=== PATIENT | male | born 1975 | race Hispanic/Latino ===

== ENCOUNTER 2019-06-16 05:29 | Emergency (ER) | payer OTHER, SELFPAY ==
[2019-06-16 06:13] LABS: Absolute Lymphocytes (CBC) 1.5 K/uL (0.7-4.9); Basophils % 0.6 % (0-1.3); Hematocrit 42.9 % (39.6-49.0); Lymphocytes % 16.3 % (15.3-44.8); RBC Red Blood Cell Count 4.98 M/uL (4.33-5.43)
[2019-06-16 06:19] LABS: Albumin 3.5 g/dL (3.4-5.0); Bilirubin Direct 0.2 mg/dL (0-0.2); Bilirubin Total 0.3 mg/dL (0.2-1.0); Potassium 3.9 mmol/L (3.5-5.1); Protein, Total 7.6 g/dL (6.4-8.2)
--- NOTE | 2019-06-16 06:51 | ER ---
Nurse's Notes [facility] Name: Parker Bermeo Age: 44 yrs Sex: Male : 1975 Arrival Date: 06/16/2019 Time: 05:30 Bed 5 Private MD: Diagnosis: Vomiting;Unspecified abdominal pain Presentation: 06/16 05:38 Presenting complaint: Patient states: Sudden onset epigastric pain that began at 0400, lp1 vomited x3, no relief with Tums. Transition of care: patient was not received from another setting of care. Onset of symptoms was June 16, 2019 at 04:00. Risk Assessment: Do you want to hurt yourself or someone else? Patient reports no desire to harm self or others. Initial Sepsis Screen: Does the patient meet any 2 criteria? No. Patient's initial sepsis screen is negative. Does the patient have a suspected source of infection? No. Patient's initial sepsis screen is negative. Care prior to arrival: None. 05:38 Method Of Arrival: Ambulatory lp1 05:38 Acuity: ANNETTE 3 lp1 Historical: - Allergies: 05:40 No Known Allergies; lp1 - Home Meds: 05:40 None [Active]; lp1 - PMHx: 05:40 None; lp1 - PSHx: 05:40 Tonsillectomy; lp1 - Immunization history:: Adult Immunizations up to date. - Social history:: Smoking status: Patient uses tobacco products, smokes one-half pack cigarettes per day. - Ebola Screening: : No symptoms or risks identified at this time. Screenin:40 Abuse screen: Denies threats or abuse. Denies injuries from another. Nutritional lp1 screening: No deficits noted. Tuberculosis screening: No symptoms or risk factors identified. Fall Risk None identified. Assessment: 05:42 Reassessment: verbal order from Dr. Martin for Morphine 4 mg IV x1, Zofran 4 mg IV x1. lp1 06:01 General: Appears in no apparent distress. uncomfortable, Behavior is calm, cooperative, jb4 appropriate for age. Pain: Complains of pain in abdomen Pain does not radiate. Pain currently is 3 out of 10 on a pain scale. Neuro: Level of Consciousness is awake, alert, obeys commands, Oriented to person, place, time, situation. Cardiovascular: Patient's skin is warm and dry. Respiratory: Airway is patent Respiratory effort is even, unlabored, Respiratory pattern is regular, symmetrical. GI: Abdomen is non-distended, obese, Bowel sounds present X 4 quads. Abd is soft and non tender X 4 quads. : No signs and/or symptoms were reported regarding the genitourinary system. EENT: No signs and/or symptoms were reported regarding the EENT system. Derm: Skin is intact, Skin is pink, warm \T\ dry. Musculoskeletal: Circulation, motion, and sensation intact. Range of motion: intact in all extremities. 06:55 Reassessment: Patient appears in no apparent distress at this time. Patient and/or jb4 family updated on plan of care and expected duration. Pain level reassessed. Patient is alert, oriented x 3, equal unlabored respirations, skin warm/dry/pink. Patient states feeling better. Vital Signs: 05:39 BP 171 / 92; Pulse 62; Resp 18; Temp 97.6(O); Pulse Ox 100% on R/A; Weight 156.49 kg lp1 (R); Height 5 ft. 10 in. (177.80 cm); Pain 9/10; 06:55 BP 147 / 78; Pulse 66; Resp 16; Pulse Ox 100% on R/A; jb4 05:39 Body Mass Index 49.50 (156.49 kg, 177.80 cm) lp1 ED Course: 05:30 Patient arrived in ED. ds1 05:39 Triage completed. lp1 05:39 Arm band placed on. lp1 05:39 Patient has correct armband on for positive identification. Bed in low position. Call jb4 light in reach. Side rails up X 1. Pulse ox on. NIBP on. 05:41 Abdominal pain workup initiated per nursing protocol. lp1 05:44 Stephan Bedoya FNP-C is PHCP. la1 05:44 Jax Martin MD is Attending Physician. la1 05:48 Diego Moran, MARTHA is Primary Nurse. jb4 05:55 Initial lab(s) drawn, by ky, by EMS personnel. Inserted saline lock: 20 gauge in right jb4 wrist, using aseptic technique. Blood collected. 06:11 Stephan Bedoya FNP-C is PHCP. la1 06:11 Jax Martin MD is Attending Physician. la1 06:57 No provider procedures requiring assistance completed. IV discontinued, intact, jb4 bleeding controlled, No redness/swelling at site. Pressure dressing applied. Administered Medications: 06:57 Not Given (Patient Refused): morphine 4 mg IVP once; RASS on ADMIN: Combtv4, Very jb4 Agttd3, Agttd2, Rstlss1, AlertClm0, Drwsy-1, Lt Sdtn-2, Mod Sdtn-3, Dp Sdtn-4, UnArsble-5 06:57 Not Given (Patient Refused): Zofran 4 mg IVP once; over 2 minutes jb4 Outcome: 06:49 Discharge ordered by MD. la1 06:57 Discharged to home ambulatory. jb4 06:57 Condition: stable 06:57 Discharge instructions given to patient, Instructed on discharge instructions, follow up and referral plans. medication usage, Demonstrated understanding of instructions, follow-up care, medications, Prescriptions given X 1. 06:58 Patient left the ED. jb4 Signatures: Hannah Villarreal ds1 Naya Oh, RN RN lp1 Stephan Bedoya, HEALTH DATA ADMINISTRATOR-C HEALTH DATA ADMINISTRATOR-Cla1 Diego Moran, RN RN jb4
--- NOTE | 2019-06-16 06:51 | EDPHYS ---
Physician Documentation [facility] Name: Parker Bermeo Age: 44 yrs Sex: Male : 1975 Arrival Date: 06/16/2019 Time: 05:30 Bed 5 Private MD: ED Physician Jax Martin HPI: 06/16 06:01 This 44 yrs old Male presents to ER via Ambulatory with complaints of la1 Abdominal Pain. 06:01 The patient presents with abdominal pain in the epigastric area. Onset: The la1 symptoms/episode began/occurred at 04:00. The symptoms do not radiate. Associated signs and symptoms: Pertinent positives: nausea and vomiting. The symptoms are described as burning. Modifying factors: The symptoms are alleviated by antacids. Severity of pain: At its worst the pain was moderate in the emergency department the pain has improved. The patient has not experienced similar symptoms in the past. Pt reports eating fried chicken at 0800 and waking up with sharp epigastric pain that is described as burning with three episodes of vomiting, denies fever or ill contacts, took some tums and drank some sprite from [employer] and is feeling better at this time. Historical: - Allergies: 05:40 No Known Allergies; lp1 - Home Meds: 05:40 None [Active]; lp1 - PMHx: 05:40 None; lp1 - PSHx: 05:40 Tonsillectomy; lp1 - Immunization history:: Adult Immunizations up to date. - Social history:: Smoking status: Patient uses tobacco products, smokes one-half pack cigarettes per day. - Ebola Screening: : No symptoms or risks identified at this time. ROS: 06:03 Constitutional: Negative for fever, chills, and weight loss, Eyes: Negative for injury, la1 pain, redness, and discharge, ENT: Negative for injury, pain, and discharge, Neck: Negative for injury, pain, and swelling, Cardiovascular: Negative for chest pain, palpitations, and edema, Respiratory: Negative for shortness of breath, cough, wheezing, and pleuritic chest pain, Back: Negative for injury and pain, : Negative for injury, bleeding, discharge, and swelling, MS/Extremity: Negative for injury and deformity, Neuro: Negative for headache, weakness, numbness, tingling, and seizure. 06:03 Abdomen/GI: Positive for abdominal pain, nausea and vomiting. Exam: 06:08 Constitutional: This is a well developed, well nourished patient who is awake, alert, la1 and in no acute distress. Head/Face: Normocephalic, atraumatic. Eyes: Pupils equal round and reactive to light, extra-ocular motions intact. Periorbital areas with no swelling, redness, or edema. ENT: Mucous membranes moist. Neck: Supple, full range of motion without nuchal rigidity, or vertebral point tenderness. No Meningismus. Chest/axilla: Normal chest wall appearance and motion. Nontender with no deformity. No lesions are appreciated. Cardiovascular: Regular rate and rhythm with a normal S1 and S2. No gallops, murmurs, or rubs. Normal PMI, no JVD. No pulse deficits. Respiratory: Lungs have equal breath sounds bilaterally, clear to auscultation No rales, rhonchi or wheezes noted. No increased work of breathing, no retractions or nasal flaring. 06:08 Abdomen/GI: Inspection: obese Bowel sounds: normal, in all quadrants, Palpation: soft, in all quadrants, mild abdominal tenderness, in the epigastric area, Indicators: McBurney's point is not tender, Palma's sign is negative, Rovsing's sign is negative, Obturator sign is negative, Psoas sign is negative. 06:08 Back: pain, is absent, CVA tenderness, is absent. Vital Signs: 05:39 BP 171 / 92; Pulse 62; Resp 18; Temp 97.6(O); Pulse Ox 100% on R/A; Weight 156.49 kg lp1 (R); Height 5 ft. 10 in. (177.80 cm); Pain 9/10; 06:55 BP 147 / 78; Pulse 66; Resp 16; Pulse Ox 100% on R/A; jb4 05:39 Body Mass Index 49.50 (156.49 kg, 177.80 cm) lp1 MDM: 05:44 Patient medically screened. la1 06:29 ED course: Pt states pain is resolved, drinking sprite in room, return precautions la1 given, no focal findings on serial abd exams. 06:48 Differential diagnosis: AAA, appendicitis, coronary artery disease, cholecystitis, la1 Cholelithiasis, gastritis, gastroesophageal reflux disease, Mesenteric ischemia or infarction, pancreatitis, Peptic Ulcer Disease, Perf. Duodenal Ulcer, Perf. Gastric Ulcer. Data reviewed: vital signs, nurses notes, lab test result(s), EKG, and as a result, I will discharge patient. Data interpreted: Pulse oximetry: on room air is 100 %. Interpretation: normal. Counseling: I had a detailed discussion with the patient and/or guardian regarding: the historical points, exam findings, and any diagnostic results supporting the discharge/admit diagnosis, the presence of at least one elevated blood pressure reading (>120/80) during this emergency department visit, lab results, the need for outpatient follow up, a family practitioner, to return to the emergency department if symptoms worsen or persist or if there are any questions or concerns that arise at home. Special discussion: Based on the patient's Hx, exam, and Dx evaluation, there is no indication for emergent surgery or inpatient Tx. It is understood by the patient/guardian that if the Sx's persist or worsen they need to return immediately for re-evaluation. 06/16 05:42 Order name: Basic Metabolic Panel; Complete Time: 06:20 lp1 06/16 05:42 Order name: CBC with Diff; Complete Time: 06:20 lp1 06/16 05:42 Order name: Creatinine for Radiology; Complete Time: 06:20 lp06/16 05:42 Order name: Hepatic Function; Complete Time: 06:20 lp06/16 05:42 Order name: Lipase; Complete Time: 06:20 lp1 06/16 05:42 Order name: IV Saline Lock; Complete Time: 06:00 lp06/16 05:42 Order name: Labs collected and sent; Complete Time: 06:00 lp1 06/16 05:42 Order name: EKG - Nurse/Tech; Complete Time: 06:00 lp1 06/16 05:42 Order name: EKG; Complete Time: 05:43 lp1 06/16 06:29 Order name: PO challenge; Complete Time: 06:30 la1 Administered Medications: 06:57 Not Given (Patient Refused): morphine 4 mg IVP once; RASS on ADMIN: Combtv4, Very jb4 Agttd3, Agttd2, Rstlss1, AlertClm0, Drwsy-1, Lt Sdtn-2, Mod Sdtn-3, Dp Sdtn-4, UnArsble-5 06:57 Not Given (Patient Refused): Zofran 4 mg IVP once; over 2 minutes jb4 Disposition: 06:59 Co-signature as Attending Physician, Jax Martin MD. pkpio Disposition: 06/16/19 06:49 Discharged to Home. Impression: Vomiting, Unspecified abdominal pain. - Condition is Stable. - Discharge Instructions: Abdominal Pain, Adult, Nausea and Vomiting, Adult, Abdominal Pain, Adult, [id number]. - Prescriptions for Zofran 4 mg Oral Tablet - take 1 tablet by ORAL route every 12 hours As needed; 20 tablet. - Medication Reconciliation Form, Thank You Letter form. - Follow up: Private Physician; When: 2 - 3 days; Reason: Recheck today's complaints, Re-evaluation by your physician. Follow up: Emergency Department; When: As needed; Reason: Worsening of condition. - Problem is new. - Symptoms are resolved. Signatures: Dispatcher [employer] EDMS Jax Martin MD MD pkl Pena, Laura, RN RN lp1 Stephan Bedoya, FARMWORKER GENERAL-C FARMWORKER GENERAL-Cla1 Diego Moran, RN RN jb4 Corrections: (The following items were deleted from the chart) 06:58 06:49 06/16/2019 06:49 Discharged to Home. Impression: Vomiting; Unspecified abdominal jb4 pain. Condition is Stable. Discharge Instructions: Abdominal Pain, Adult, Nausea and Vomiting, Adult, Abdominal Pain, Adult, [id number]. Prescriptions for Zofran 4 mg Oral Tablet - take 1 tablet by ORAL route every 12 hours As needed; 20 tablet. and Forms are Medication Reconciliation Form, Thank You Letter, Antibiotic Education, Prescription Opioid Use. Follow up: Private Physician; When: 2 - 3 days; Reason: Recheck today's complaints, Re-evaluation by your physician. Follow up: Emergency Department; When: As needed; Reason: Worsening of condition. Problem is new. Symptoms are resolved. la1
[2019-06-16 07:05] VITALS: TEMP 97.6; O2SAT 100
[2019-06-16 07:07] VITALS: BP 147/78
--- NOTE | 2019-06-17 08:11 | EKG ---
Test Date: 2019-06-16 Test Time: 05:53:06 Building Repair Maintenance Supervisor: CORINNA MEASUREMENT RESULTS: Intervals: Rate: 60 CA: 148 QRSD: 88 QT: 410 QTc: 410 [place]: P: 43 CA: 148 QRS: 27 T: 27 INTERPRETIVE STATEMENTS: Normal sinus rhythm Normal ECG Compared to ECG 11/26/1995 23:52:00 No significant changes Electronically Signed On 06-17-19 08:10:06 LOADING AND UNLOADING SUPERVISOR by Leroy Grant
== END 2019-06-16 06:58 | disposition home or self-care (01) ==
LOC: ER 05:29
DX: R10.9 Unspecified abdominal pain (principal); R11.10 Vomiting, unspecified; F17.210 Nicotine dependence, cigarettes, uncomplicated
CPT/HCPCS: 36415; 80048; 80076; 83690; 85025; 93005; 99284